=== PATIENT | male | born 1990 | race African-American/Black ===

== ENCOUNTER 2017-07-19 11:23 | Emergency (ER) | payer MEDICAID ==
[~2017-07-19] VITALS: Ht 162.6 cm; Wt 69.0 kg
[2017-07-19 11:37] VITALS: BP 135/87
== END 2017-07-19 16:09 | disposition left against medical advice (07) ==
LOC: ER 11:23
DX: S90.562A Insect bite (nonvenomous), left ankle, initial encounter (principal); W57.XXXA Bitten or stung by nonvenomous insect and other nonvenomous arthropods, initial encounter; Y93.9 Activity, unspecified; Y92.9 Unspecified place or not applicable; Z53.21 Procedure and treatment not carried out due to patient leaving prior to being seen by health care provider

== ENCOUNTER 2022-04-15 10:57 | Emergency (ER) | payer MEDICAID ==
[~2022-04-15] VITALS: Ht 170.2 cm; Wt 91.0 kg
[2022-04-15] MEDS ORDERED: SODIUM CHLORIDE 0.9% 500 ML IV ONE (11:45)
[2022-04-15] MEDS ORDERED: ONDANSETRON HCL 4MG/2ML INJ IV ONE (11:45)
[2022-04-15] MEDS ORDERED: MORPHINE SULFATE 4 MG/ML CPJ (NOT FOR IM USE) IV ONE (12:45)
[2022-04-15 12:57] VITALS: BP 146/92
[2022-04-15 13:03] LABS: BASOPHILS % 0.5 % (0.0-2.0); EOSINOPHILS % 1.3 % (0.0-5.0); HEMATOCRIT. 43.9 % (42.0-52.0); HEMOGLOBIN. 14.6 g/dL (14.0-18.0); LYMPHOCYTES % 17.3 % (20.0-50.0); MEAN CORPUSCULAR HEMOGLOBIN 27.2 pg (28.0-32.0); MEAN CORPUSCULAR VOLUME 81.9 fL (80.0-94.0); MEAN PLATELET VOLUME 8.3 fl (7.4-10.4); MONOCYTES % 8.2 % (2.0-8.0); NEUTROPHILS % 72.7 % (40.0-76.0); PLATELET 259 x1000/uL (130-400); RED BLOOD CELL COUNT 5.36 mill/uL (4.7-6.1); RED CELL DISTRIBUTION WIDTH 13.5 % (11.6-14.6)
[2022-04-15] MEDS ORDERED: DICYCLOMINE 10 MG/5 ML ORAL SYR PO STA (13:12)
[2022-04-15] MEDS ORDERED: MAGNESIUM/ALUMINUM HYDROXIDE/SIMETHICONE 30ML UDC PO STA (13:12)
[2022-04-15] MEDS ORDERED: VISCOUS LIDOCAINE 2% 15 ML UDC PO STA (13:12)
[2022-04-15 13:26] LABS: CHLORIDE 107 mEq/L (98-107)
[2022-04-15] MEDS ORDERED: ONDA4TAB11 PO ×3 (13:42→15:35)
[2022-04-15] MEDS ORDERED: ACET-2708 MT ×3 (13:42→15:35)
[2022-04-15] MEDS ORDERED: OMEP20CA14 PO ×3 (13:42→15:35)
== END 2022-04-15 15:23 | disposition home or self-care (01) ==
LOC: ER 10:57
DX: K29.00 Acute gastritis without bleeding (principal); R11.0 Nausea; Z98.890 Other specified postprocedural states
CPT/HCPCS: 36415; 80053; 83690; 85025; 96361; 96374; 96375; 99285; J2270; J2405; J7040

== ENCOUNTER 2023-09-26 03:18 | Emergency (ER) | payer MEDICAID ==
[~2023-09-26] VITALS: Ht 172.7 cm; Wt 93.0 kg
[~2023-09-26 03:18] MED LIST: ACET-2708 MT; OMEP20CA14 PO; ONDA4TAB11 PO
[2023-09-26 03:29] VITALS: O2SAT 99
[2023-09-26] MEDS ORDERED: KETOROLAC 60MG/2ML VIAL IM ONE (06:00)
[2023-09-26] MEDS: KETOROLAC 30MG/ML VIAL IM NR (08:30)
[2023-09-26] MEDS ORDERED: HYDR-4001 MT (08:38)
[2023-09-26] MEDS ORDERED: IBUP-2029 MT (08:38)
[2023-09-26] MEDS ORDERED: OXYC-100 MT (08:51)
[2023-09-26 10:57] VITALS: BP 141/88; PULSE 62; RESP 18; TEMP 98.1
== END 2023-09-26 10:59 | disposition home or self-care (01) ==
LOC: ER 04:39
DX: M10.9 Gout, unspecified (principal); F12.90 Cannabis use, unspecified, uncomplicated; Z98.890 Other specified postprocedural states; Z91.013 Allergy to seafood
CPT/HCPCS: 99283; 73630; 96372; J1885

== ENCOUNTER 2024-01-27 00:56 | Emergency (ER) | payer MEDICAID ==
[~2024-01-27] VITALS: Ht 170.2 cm; Wt 91.0 kg
[~2024-01-27 00:56] MED LIST changes: +IBUP-2029 MT; +OXYC-100 MT
[2024-01-27 01:12] VITALS: O2SAT 98
[2024-01-27] MEDS: KETOROLAC 15MG/ML VIAL IM ONE (01:56)
[2024-01-27] MEDS ORDERED: COLC0.6C3 MT ×2 (02:04)
[2024-01-27 02:25] VITALS: BP 120/66; PULSE 69; RESP 14; TEMP 98.3
== END 2024-01-27 02:25 | disposition home or self-care (01) ==
LOC: ER 00:56
DX: M10.9 Gout, unspecified (principal); F12.90 Cannabis use, unspecified, uncomplicated; Z98.890 Other specified postprocedural states; Z91.013 Allergy to seafood
CPT/HCPCS: 99283; 96372; J1885

== ENCOUNTER 2024-05-06 07:28 | Emergency (ER) | payer MEDICAID ==
[~2024-05-06] VITALS: Ht 172.7 cm; Wt 88.5 kg
[~2024-05-06 07:28] MED LIST changes: +COLC0.6C3 MT; +ONDA-239 PO; -ONDA4TAB11 PO
[2024-05-06 07:29] VITALS: O2SAT 98
[2024-05-06] MEDS ORDERED: IBUP-2028 MT (09:18)
[2024-05-06 09:26] VITALS: BP 138/88; PULSE 77; RESP 16; TEMP 36.78072; O2SAT 98
[2024-05-06] MEDS: KETOROLAC 15MG/ML VIAL IM ONE (09:28)
== END 2024-05-06 10:16 | disposition home or self-care (01) ==
LOC: ER 07:28
DX: M79.18 Myalgia, other site (principal); F12.90 Cannabis use, unspecified, uncomplicated; Z98.890 Other specified postprocedural states; Z79.899 Other long term (current) drug therapy; Z91.013 Allergy to seafood
CPT/HCPCS: 73030; 73060; 73090; 73130; 96372; 99284; J1885; Z7610 ×2

== ENCOUNTER 2024-10-30 09:33 | Emergency (ER) | payer MEDICAID ==
[~2024-10-30] VITALS: Ht 172.7 cm; Wt 89.5 kg
[~2024-10-30 09:33] MED LIST changes: +IBUP-2028 MT
[2024-10-30 09:39] VITALS: O2SAT 98
[2024-10-30 10:03] VITALS: BP 140/93; PULSE 77; RESP 16; TEMP 36.7; O2SAT 100
[2024-10-30] MEDS ORDERED: ERYT1OIN6 RIGHT EAR (10:36)
== END 2024-10-30 11:45 | disposition left against medical advice (07) ==
LOC: ER 09:33
DX: H10.9 Unspecified conjunctivitis (principal); F12.90 Cannabis use, unspecified, uncomplicated; Z79.899 Other long term (current) drug therapy; Z98.890 Other specified postprocedural states; Z91.013 Allergy to seafood
CPT/HCPCS: 99283

== ENCOUNTER 2025-04-15 22:52 | Emergency (ER) | payer MEDICAID, OTHER ==
[~2025-04-15] VITALS: Ht 172.7 cm; Wt 93.0 kg
[~2025-04-15 22:52] MED LIST changes: +ERYT1OIN6 RIGHT EAR; +IBUP-1455 MT; -IBUP-2029 MT
[2025-04-15 23:04] VITALS: O2SAT 99
[2025-04-15 23:55] VITALS: BP 134/87; PULSE 69; RESP 16; TEMP 36.7; O2SAT 99
[2025-04-16] MEDS: CYCLOBENZAPRINE 10MG TABLET PO ONE (03:58)
[2025-04-16] MEDS: KETOROLAC 30MG/ML VIAL IM ONE (04:21)
[2025-04-16] MEDS ORDERED: CYCL10TA21 MT (04:26)
[2025-04-16] MEDS ORDERED: NAPR-1176 MT (04:26)
== END 2025-04-16 04:44 | disposition home or self-care (01) ==
LOC: ER 22:52
DX: R51.9 Headache, unspecified (principal); R22.0 Localized swelling, mass and lump, head; M25.562 Pain in left knee; F12.90 Cannabis use, unspecified, uncomplicated; Z79.899 Other long term (current) drug therapy; Z91.013 Allergy to seafood
CPT/HCPCS: 99285; 70450; 73562; 96372; J1885